=== PATIENT | male | born 1985 | race Caucasian/White ===

== ENCOUNTER 2017-12-12 16:35 | Emergency (ER) | payer OTHER ==
[~2017-12-12] VITALS: Ht 175.3 cm; Wt 113.0 kg
[~2017-12-12 16:35] MED LIST: CLIN1CAP5 PO; MMW SSP
[2017-12-12 16:42] VITALS: BP 139/89; PULSE 108; RESP 18; TEMP 98.9; O2SAT 96
--- NOTE | 2017-12-12 17:28 | PD ---
HPI Chief Complaint: Medical Clearance Time Seen by Provider: 17:03 Travel History International Travel<30 days: No Contact w/Intl Traveler<30days: No Traveled to known affect area: No History of Present Illness HPI 32yo M with no PMH presents to the ED with c/o burning/itching in bilateral forearms since 4pm today. Pt said he was pulling someone out of the car for heroin overdose and there was some substance in the car that he may have touch. He was wearing gloves but feels a burning sensation that is itchy in bilateral forearms and immediately decontaminated and washed his forearm with soap and water. Denies any smoke inhalation, chest pain, sob, lip or tongue swelling, n/v, abdominal pain, focal weakness or numbness. Pt is awake and alert with normal mental status. PFSH Past Medical History Medical History: Denies Significant Hx Past Surgical History Surgical History: No Previous Surgery Social History Alcohol Use: Yes (SOCIALLY) Tobacco Use: Yes Substance Use: No Allergies-Medications (Allergen,Severity, Reaction): Coded Allergies: No Known Allergies (Verified , 01/22/15) Reported Meds & Prescriptions Reported Meds & Active Scripts Active Magic Mouthwash-Diphenhy Formula (Lidocaine/Diphenhydr/Alum/Mg/Simeth) Ml 10 Ml SSP Q6HR PRN 5 Days MAGIC MOUTHWASH CONTAINS 1/3 VISCOUS LIDOCAINE,1/3 MAALOX, AND 1/3 BENADRYL. Clindamycin Hcl (Clindamycin HCl) 150 Mg Cap 2 Capl PO Q8HR 7 Days Review of Systems Except as stated in HPI: all other systems reviewed are Neg Physical Exam Narrative GENERAL: 32yo M not in distress. SKIN: Mild erythema in bilateral forearm. No bullous. HEAD: Atraumatic. Normocephalic. EYES: Pupils equal and round. No scleral icterus. No injection or drainage. ENT: No nasal bleeding or discharge. Mucous membranes pink and moist. NECK: Trachea midline. No JVD. CARDIOVASCULAR: Regular rate and rhythm. No murmur appreciated. RESPIRATORY: No accessory muscle use. Clear to auscultation. Breath sounds equal bilaterally. GASTROINTESTINAL: Abdomen soft, non-tender, nondistended. MUSCULOSKELETAL: No obvious deformities. No clubbing. No cyanosis. No edema. Distal pulses intact. NEUROLOGICAL: Awake and alert. No obvious cranial nerve deficits. Motor grossly within normal limits in all extremities. Sensation equal. Normal speech. PSYCHIATRIC: Appropriate mood and affect; insight and judgment normal. Data Data Last Documented VS Vital Signs Date Time Temp Pulse Resp B/P (MAP) Pulse Ox O2 Delivery O2 Flow Rate FiO2 12/12/17 16:42 98.9 108 18 139/89 (106) 96 Orders Orders Diphenhydramine (Benadryl) (12/12/17 17:30) Prednisone (Deltasone) (12/12/17 17:30) Ibuprofen (Motrin) (12/12/17 17:30) Call Poison Control (12/12/17 17:28) Ed Discharge Order (12/12/17 18:57) MDM Medical Decision Making Medical Screen Exam Complete: Yes Emergency Medical Condition: Yes Differential Diagnosis Contact dermatitis vs. 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 Pt denies any smoke, fire or sob. There is some erythema in bilateral forearm but no blisters or urticaria. Pt given prednisone and diphenhydramine with some improvement. Pt has been observed in the ED if no worsening symptoms. Called poison control and they suggest pt take a shower. Pt has already wash forearms multiple times. Pt reevaluated at bedside and redness has resolved. Return precautions given. Diagnosis Primary Impression: Contact dermatitis Qualified Codes: L24.9 - Irritant contact dermatitis, unspecified cause Patient Instructions: General Instructions Departure Forms: Tests/Procedures Additional Instructions: Please follow up with your primary care physician in 2-3 days. Return to the ED if symptoms worsen. Med/Other Pt SpecificInfo: Prescription(s) given Scripts Diphenhydramine (Diphenhydramine) 25 Mg Cap 25 MG PO Q6H Y for ALLERGIES for 5 Days, #20 CAP 0 Refills Prov: Carleen Albert DO 12/12/17 Disposition: 01 DISCHARGE HOME Condition: Stable Carleen Albert December 12, 2017 17:28
[2017-12-12] MEDS ORDERED: IBUPROFEN 600 MG TAB PO ONE (17:30)
[2017-12-12] MEDS ORDERED: predniSONE 50 MG TAB PO ONE (17:30)
[2017-12-12] MEDS ORDERED: diphenhydrAMINE HCL 50 MG CAP PO ONE (17:30)
[2017-12-12] MEDS ORDERED: DIPH25CA PO (19:07)
== END 2017-12-12 19:29 | disposition home or self-care (01) ==
LOC: NEDAMB 16:35 → NEPD 19:29
DX: L24.9 Irritant contact dermatitis, unspecified cause (principal)
CPT/HCPCS: 99283; J7512; Q0163